=== PATIENT | male | born 1985 | race Two or more races ===

== ENCOUNTER 2024-11-05 10:21 | Emergency (ER) | payer MEDICAID, OTHER ==
[~2024-11-05] VITALS: Ht 180.3 cm; Wt 94.6 kg
[2024-11-05 10:52] VITALS: BP 128/73; PULSE 89; RESP 16; TEMP 98.7; O2SAT 98
[2024-11-05] MEDS: TETRACAINE HCL 0.5% OPTH(EYE) SOLN 4ML LEFTEYE ONE (11:00)
[2024-11-05] MEDS: FLUORESCEIN SOD OPTH TEST STRIP OP ONE (11:00)
[2024-11-05] MEDS ORDERED: TOB03OS OP (11:13)
--- NOTE | 2024-11-05 11:13 | ED.PDOC ---
Eye-HPI HPI Comments A 39 YEAR OLD MALE PRESENTS TO THE ED WITH COMPLAINT OF RIGHT EYE REDNESS AND IRRITATION. PATIENT STATES HE WAS WALKING HIS DOG YESTERDAY NIGHT AND THINKS HE MAY HAVE GOT AND A PIECE OF DUST OR DIRT IN HIS RIGHT EYE WHILE THE WIND WAS BLOWING YESTERDAY. PATIENT REPORTS HE IS NOW EXPERIENCING RIGHT EYE REDNESS AND IRRITATION. PATIENT DENIES VISION CHANGES, FEVER, CHILLS, SHORTNESS OF BREATH, CHEST PAIN, ABDOMINAL PAIN, NAUSEA, VOMITING, HEADACHE, OR OTHER COMPLAINTS. NO OTHER SYMPTOMS OR MODIFYING FACTORS AT THIS TIME. PATIENT IS ALERT, ORIENTED X 4, AND HAS STEADY GAIT. Chief Complaint: Eye Problem Time Seen by MD: 10:36 Reviewed Notes: Nurses Notes, Medications, Allergies Allergies: Coded Allergies: Penicillins (Verified Allergy, Unknown, 11/05/24) Home Meds Active Scripts Tobramycin Sulfate (Tobrex) [address], 2 DROP OP QID, #5 ML Prov:SALVATORE ANDERSON 11/05/24 Information Source: Patient Mode of Arrival: Ambulatory Timing: Days Duration: Since onset, Days Prehospital treatment: None Quality: Pain, Red Eye Location: Right Lids: Normal Conjunctiva: Normal Cornea: Right eye, Abrasion Pupils: Normal EOM: Normal Fundus: Normal Slit lamp exam: Right eye, Corneal abrasion, Foreign Body, Flourescein stain:, Positive Anterior chamber: Normal Mouth: Normal ENT Ear Exam: Normal, Normal, Normal Nose: Normal Sinuses: Normal Oropharynx: Normal Onset: Spontaneous Throat Exposed to: None History of: None Last Tetanus: Unknown Modifying factors: Nothing Associated signs and symptoms: Tearing Past Medical History PAST MEDICAL HISTORY: Denies Surgical History: Denies all surgeries Family History Family History: Reviewed,noncontributory to illness Social History Smoker: Cigarettes Alcohol: Denies ETOH Use Drugs: Denies Drug Use Lives In: Home Constitutional: denies: chills, diaphoresis, fatigue, fever, malaise, sweats, weakness, others EENTM: reports: eye pain (RIGHT EYE IRRITATION), eye redness (RIGHT EYE REDNESS); denies: blurred vision, double vision, ear bleeding, ear discharge, ear drainage, ear pain, ear ringing, hearing loss, mouth pain, mouth swelling, nasal discharge, nose bleeding, nose congestion, nose pain, photophobia, tearing, throat pain, throat swelling, voice changes, others Respiratory: denies: cough, hemoptysis, orthopnea, SOB at rest, shortness of breath, SOB with excertion, stridor, wheezing, others Cardiovascular: denies: chest pain, dizzy spells, diaphoresis, Dyspnea on exertion, edema, irregular heart beat, left arm pain, lightheadedness, palpitations, PND, syncope, others Gastrointestinal: denies: abdomen distended, abdominal pain, blood streaked bowels, constipated, diarrhea, dysphagia, difficulty swallowing, hematemesis, melena, nausea, poor appetite, poor fluid intake, rectal bleeding, rectal pain, vomiting, others Genitourinary: denies: burning, dysuria, flank pain, frequency, hematuria, incontinence, penile discharge, penile sore, pain, testicle pain, testicle swelling, urgency, others Neurological: denies: dizziness, fainting, headache, left sided numbness, left sided weakness, numbness, paresthesia, pre-existing deficit, right sided numbness, right sided weakness, seizure, speech problems, tingling, tremors, weakness, others Musculoskeletal: denies: back pain, gout, joint pain, joint swelling, muscle pain, muscle stiffness, neck pain, others Integumetry: denies: bruises, change in color, change in hair/nails, dryness, laceration, lesions, lumps, rash, wounds, others Allergic/Immunocompromised: denies: Difficulty Healing, Frequent Infections, Hives, Itching, others Hematologic/Lymphatic: denies: anemia, blood clots, easy bleeding, easy bruising, swollen glands, others Endocrine: denies: excessive hunger, excessive sweating, excessive thirst, excessive urination, flushing, intolerance to cold, intolerance to heat, unexplained weight gain, unexplained weight loss, others Psychiatric: denies: anxiety, bipolar disorder, depression, hopeless, panic disorder, schizophrenia, sleepless, suicidal, others All Other Systems: Reviewed and Negative Physical Exam General Appearance: No Apparent Distress, Normal HEENT: Cornea (R) (WOOD LAMP EXAM OF RIGHT EYE: +A TINY DUST ON RIGHT CORNEA WITH CORNEA ABRASION, RIGHT SUBCONJUNCTIVA HEMORRHAGE. ), Normal ENT Inspection, PERRL/EOMI, Pharynx Normal, TMs Normal Neck: Full Range of Motion, Non-Tender, Normal, Normal Inspection Respiratory: Chest Non-Tender, Lungs Clear, No Accessory Muscle Use, No Respiratory Distress, Normal Breath Sounds Cardiovascular: No Edema, No JVD, No Murmur, No Gallop, Normal Peripheral Pulses, Regular Rate/Rhythm Breast Exam: Deferred Gastrointestinal: No Organomegaly, Non Tender, No Pulsatile Mass, Normal Bowel Sounds, Soft Genitalia: Deferred Pelvic: Deferred Rectal: Deferred Extremities: No calf tenderness, Normal capillary refill, Normal inspection, Normal range of motion, Non-tender, No pedal edema Musculoskeletal : Apperance: Normal Neurologic: Alert, principal clerk II-XII nml as Tested, No Motor Deficits, Normal Affect, Normal Mood, No Sensory Deficits Cerebellar Function: Normal Reflexes: Normal Skin: Dry, Normal Color, Warm Peripheral Pulses: 2+ carotid (R), 2+ carotid (L) Lymphatic: No Adenopathy Was a procedure done? Was a procedure done?: Yes Sedation Sedation?: No Foreign Body Removal Foreign body in: Eye (RIGHT EYE) Anesthetic: Other (TETRACAINE) Prep: Prep, Saline, Irrigation (RIGHT EYE WITH NORMAL SALINE ON RIGHT EYE 50ML. ) Procedure: Identified (A RAMESH ON RIGHT CORNEA. ), Removed (AN 18 GAUGE NEEDLE WAS USED TO SCRAPE A PIECE OF DIRT THE PATIENT'S RIGHT EYE. FOREIGN BODY WAS SUCCESSFULLY REMOVED. THE PATIENT'S RIGHT EYE WAS THEN IRRIGATED WITH NORMAL SALINE. PATIENT TOLERATED WELL.) Informed consent obtained: No Risks/benefits/alt described: Yes Notes AN 18 GAUGE NEEDLE WAS USED TO SCRAPE A PIECE OF DIRT OUT OF THE PATIENT'S RIGHT EYE. FOREIGN BODY WAS SUCCESSFULLY REMOVED. THE PATIENT'S RIGHT EYE WAS THEN IRRIGATED WITH NORMAL SALINE. PATIENT TOLERATED WELL. EENT DIFF Eye: Conjunctivitis, Allergic, Bacterial, Viral, Corneal Abrasion, Foreign Body-Conjunctiva, Foreign Body-Corneal, Foreign Body-Lid, Hordeolum (stye) Ear: N/A Nose: N/A Mouth: N/A Sore Throat: N/A X-Ray, Labs, Meds, VS Vital Signs Date Time Temp Pulse Resp B/P (MAP) Pulse Ox O2 Delivery O2 Flow Rate FiO2 11/05/24 10:52 98.7 89 16 128/73 (91) 98 98.7 11/05/24 10:52 89 16 98 Room Air 11/05/24 10:29 98.7 89 16 128/73 (91) 98 98.7 Current Medications Medications (Trade) Dose Ordered Sig/Roberth Route Start Time Stop Time Status Last Admin Fluorescein Sodium (Ful-Tatum) 1 mg ONCE ONCE OP 11/05/24 11:00 11/05/24 11:01 DC 11/05/24 11:00 Tetracaine HCl (Tetracaine 0.5% Opth Soln) 1 drop ONCE ONCE LEFTEYE 11/05/24 11:00 11/05/24 11:01 DC 11/05/24 11:00 X-Ray, Labs, Meds, VS Comment EXTERNAL MEDICAL RECORDS REVIEWED: [NONE] INDEPENDENT HISTORIANS: [NONE] SOCIAL DETERMINANTS OF HEALTH: [NONE] LABS ORDERED: NONE REVIEWED AND INTERPRETED RESULTS: NONE IMAGING ORDERED: NONE TREATMENTS ORDERED: NONE PROCEDURES PERFORMED: FOREIGN BODY REMOVAL PATIENT'S RIGHT EYE AND WOOD'S LAMP EXAMINATION. CRITICAL CARE TIME: NONE I HAVE DISCUSSED THE PATIENT WITH THE ATTENDING PHYSICIAN DR. FAN AND HE AGREES WITH THE PATIENT'S PLAN OF CARE AND DISPOSITION. BASED ON HISTORY OF PRESENT ILLNESS, AND PHYSICAL EXAM, PATIENT WILL BE DISCHARGED HOME. DISCUSSED PLAN FOR DISCHARGE HOME WITH RX [TOBRAMYCIN EYEDROPS ]. MEDICATION WARNINGS GIVEN. SHARED DECISION MAKING: PATIENT INSTRUCTED TO FOLLOW UP WITH PRIMARY CARE PROVIDER IN 1-2 DAYS FOR RE-EVALUATION OF SYMPTOMS. PATIENT VERBALIZES UNDERSTANDING TO RETURN TO ED FOR NEW OR WORSENING SYMPTOMS OR IF FOLLOW UP WITH PCP CANNOT BE OBTAINED. PATIENT FEELS COMFORTABLE GOING HOME AT THIS TIME. ALL QUESTIONS ADDRESSED AT TIME OF DISCHARGE. Time of 1ST Reevaluation: 11:30 Reevaluation 1ST: Improved Patient Education/Counseling: Diagnosis, Treatment, Need For Follow Up Family Education/Counseling: Diagnosis, Treatment, Need For Follow Up Medical Screening: No EMC Exist At This Time Departure 1 Departure Time of Disposition: 11:30 Impression: Primary Impression: History of retained foreign body fully removed Additional Impression: Corneal abrasion, right Qualified Codes: S05.01XA - Injury of conjunctiva and corneal abrasion with out foreign body, right eye, initial encounter Disposition: HOME / SELF CARE / HOMELESS Condition: Stable Additional Instructions: FOLLOW-UP WITH PCP IN 1 TO 2 DAYS. TAKE MEDICATIONS PRESCRIBED. RETURN TO ED FOR ANY NEW OR WORSENING SYMPTOMS. e-Prescriptions Tobramycin Sulfate (Tobrex) [address] 2 DROP OP QID, #5 ML Prov: SALVATORE ANDERSON 11/05/24 Discharged With: Self Critical Care Note Critical Care Time?: No Stability Stability form required: No I personally scribed for SALVATORE ANDERSON ([email or web address]) on 11/05/24 at 11:13. Electronically submitted by Wally Wang ([email or web address]). SALVATORE ANDERSON Nov 05, 2024 11:13
== END 2024-11-05 11:22 | disposition home or self-care (01) ==
LOC: ER 10:21
DX: H44.701 Unspecified retained (old) intraocular foreign body, nonmagnetic, right eye (principal); F17.210 Nicotine dependence, cigarettes, uncomplicated; Z88.0 Allergy status to penicillin; Y93.K1 Activity, walking an animal
CPT/HCPCS: 65222